=== PATIENT | male | born 1940 | race Caucasian/White ===

== ENCOUNTER 2024-06-25 11:39 | Day surgery (SDC) | payer MEDICARE, BC ==
[2024-06-25] MEDS ORDERED: dexAMETHasone sodium phosphate IJ ONE (11:40)
[2024-06-25] MEDS ORDERED: Sodium Chloride 0.9(Preservative Free) 10 ML IJ ONE (11:40)
[2024-06-25] MEDS ORDERED: propofoL IV ONE (13:03)
[2024-06-25] MEDS ORDERED: MORPHINE SULFATE 2 MG INJ ONE (13:56)
--- NOTE | 2024-06-25 15:20 | XRAY ---
Indication: Right L4-S1 transforaminal DINESH. Intraoperative fluoroscopy provided for 20 seconds. 4 digital spot image submitted for interpretation demonstrates posterior needle tips projecting over expected right L4 and L5 nerve roots. Small amount of contrast injected for needle tip placement. Correlate with intraoperative findings/report. Incidental L4-L5 fusion hardware.
--- NOTE | 2024-06-25 15:24 | XRAY ---
20 seconds of fluoroscopy was used in surgery for a right L4-S1 transforaminal DINESH.
== END 2024-06-25 14:35 | disposition home or self-care (01) ==
LOC: SDC-PAIN 11:39
PROVIDERS: ATTEND Psychiatry & Neurology Pain Medicine
DX: M54.16 Radiculopathy, lumbar region (principal); E11.9 Type 2 diabetes mellitus without complications
CPT/HCPCS: 64483; 64484; 72100; 82947; J1100; J2270; J2704; Q9966

== ENCOUNTER 2024-07-17 08:12 | Day surgery (SDC) | payer MEDICARE, BC ==
[2024-07-17] MEDS ORDERED: Depo-Medrol 40 MG/ML IM ONE (08:13)
[2024-07-17] MEDS ORDERED: Sodium Chloride 0.9(Preservative Free) 10 ML IJ ONE (08:13)
[2024-07-17] MEDS ORDERED: propofoL IV ONE (10:18)
--- NOTE | 2024-07-17 12:08 | XRAY ---
19 seconds of fluoroscopy used in surgery for a caudal DINESH.
--- NOTE | 2024-07-17 12:09 | XRAY ---
Indication: Caudal DINESH. Intraoperative fluoroscopy provided for 19 seconds. 2 digital spot image submitted for interpretation demonstrates caudal needle tip projecting mid sacrum. Small amount of contrast injected for needle tip placement. Correlate with intraoperative findings/report.
[2024-07-17] MEDS ORDERED: Lactated Ringers 1,000 ML IV ONE (13:09)
== END 2024-07-17 10:51 | disposition home or self-care (01) ==
LOC: SDC-PAIN 08:12
PROVIDERS: ATTEND Psychiatry & Neurology Pain Medicine
DX: M54.16 Radiculopathy, lumbar region (principal); E11.9 Type 2 diabetes mellitus without complications
CPT/HCPCS: 62323; 72220; 82947; J2704; Q9966